=== PATIENT | female | born 1995 | race Caucasian/White ===

== ENCOUNTER 2022-03-12 19:27 | Inpatient (IN) | payer MEDICAID, SELFPAY ==
[2022-03-12] MEDS ORDERED: Misoprostol 200 MCG TAB PR PRN (19:43)
[2022-03-12] MEDS ORDERED: HYDROcodone/Acetaminophen 5/325 mg Tablet PO PRN ×2 (19:43)
[2022-03-12] MEDS ORDERED: Promethazine HCl 25 MG/ML VIAL IM PRN (19:43)
[2022-03-12] MEDS ORDERED: Butorphanol Tartrate 1 MG/ML VIAL SLOW IVP PRN (19:43)
[2022-03-12] MEDS ORDERED: Acetaminophen 500 MG TAB PO PRN (19:43)
[2022-03-12] MEDS ORDERED: Ibuprofen 800 MG TAB PO PRN (19:43)
[2022-03-12] MEDS ORDERED: Carboprost 250 MCG/ML AMP IM PRN (19:43)
[2022-03-12] MEDS ORDERED: Methylergonovine 0.2 MG/ML VIAL IM PRN (19:43)
[2022-03-12] MEDS ORDERED: hydrALAZINE 20 MG/ML VIAL SLOW IVP PRN (19:43)
[2022-03-12] MEDS ORDERED: Lidocaine 1% (PF) 30 ML VIAL SC PRN (19:43)
[2022-03-12] MEDS ORDERED: Ondansetron PF 4 MG/2 ML Vial IVP PRN (19:43)
[2022-03-12] MEDS ORDERED: Diphenoxylate HCl/Atropine Tablet PO PRN ×2 (19:43)
[2022-03-12] MEDS ORDERED: NS w/ Oxytocin 30 units 500 ML IV SCH ×2 (19:45)
[2022-03-12 20:04] VITALS: BMI 40.7
[2022-03-12] MEDS: Lactated Ringer's 1,000 ML IV SCH (20:18)
[2022-03-12 20:48] LABS: Hemoglobin 12.8 g/dL (12.0-15.5); Mean Corpuscular HGB CONC 35.3 g/dL (32.0-36.0); Mean Corpuscular Hemoglobin 30.8 pg (27.0-33.0); Mean Corpuscular Volume 87.3 fl (81.6-98.3); Mean Platelet Volume 10.5 fl (7.4-10.4); Platelet Count 305 10x3/uL (150-450); RBC Distribution Width 11.9 % (11.5-14.5); Red Blood Cell (RBC) Count 4.16 10x6/uL (3.90-5.03); White Blood Cell (WBC) Count 8.1 10x3/uL (3.5-10.5)
[2022-03-12 21:17] LABS: SARS-CoV-2 NAA Rapid Test DETECTED (NotDetected)
[2022-03-12] MEDS: Misoprostol 100 MCG TAB VAG SCH (21:26)
[2022-03-12 21:32] LABS: HBSAg Index 0.21 S/CO (0-0.99); Hep B Surf Ag Non-Reactive S/CO (NonReactive)
[2022-03-12 21:36] LABS: Syphilis Antibody Nonreactive (Nonreactive); Syphilis Antibody Index 0.05 S/CO (<1.00 Non-Reactive)
[2022-03-13] MEDS: Misoprostol 100 MCG TAB VAG SCH ×2 (03:03→07:56)
[2022-03-13] MEDS: Lactated Ringer's 1,000 ML IV SCH (03:35)
[2022-03-14] MEDS: Lactated Ringer's 1,000 ML IV SCH ×4 (03:20→23:32)
[2022-03-14] MEDS ORDERED: Famotidine/PF 20 mg/2ml Vial SLOW IVP PRN (07:41)
[2022-03-14] MEDS ORDERED: Bicitra 30 ML UDCUP PO PRN (07:41)
[2022-03-14] MEDS ORDERED: Famotidine/PF 20 mg/2ml Vial ONE (07:43)
[2022-03-14] MEDS ORDERED: Sodium Chloride 0.9% 100 ML ONE (07:43)
[2022-03-14] MEDS ORDERED: CEFAZOLIN 2 GM VIAL ONE (07:43)
[2022-03-14] MEDS ORDERED: CEFAZOLIN 2 GM in Sodium Chloride 0.9% 100 ML IVPB SCH (07:45)
[2022-03-14] MEDS ORDERED: Azithromycin 500 MG in Sodium Chloride 0.9% 250 ML 250 ML IVPB SCH (07:45)
[2022-03-14] MEDS ORDERED: Misoprostol 200 MCG TAB ONE (09:46)
[2022-03-14] MEDS ORDERED: Carboprost 250 MCG/ML AMP ONE (09:46)
[2022-03-14] MEDS ORDERED: Methylergonovine 0.2 MG/ML VIAL ONE (09:47)
[2022-03-14] MEDS ORDERED: PHENYLEPHRINE-NS 100 MCG/ML 10 ML SYRINGE ONE (10:18)
[2022-03-14] MEDS ORDERED: Oxytocin 10 UNITS/ML VIAL ONE (10:18)
[2022-03-14] MEDS ORDERED: Morphine PF 10 MG/10 ML VIAL ONE (10:20)
[2022-03-14] MEDS ORDERED: Dexamethasone 4 mg/ml Vial ONE (10:59)
[2022-03-14] MEDS ORDERED: Ketorolac Tromethamine 30 MG/ML VIAL ONE (10:59)
[2022-03-14] MEDS ORDERED: Ondansetron PF 4 MG/2 ML Vial ONE (10:59)
[2022-03-14] MEDS ORDERED: Fentanyl 100 MCG/2 ML VIAL SLOW IVP PRN (11:42)
[2022-03-14] MEDS ORDERED: Promethazine HCl 25 MG/ML VIAL IM PRN (11:42)
[2022-03-14] MEDS ORDERED: Naloxone HCl 0.4 mg/ml Vial IVP PRN ×2 (11:42)
[2022-03-14] MEDS ORDERED: diphenhydrAMINE 50 MG/ML VIAL IVP PRN (11:42)
[2022-03-14] MEDS ORDERED: Ondansetron HCl/PF 4 MG/2 ML Vial IVP PRN (11:42)
[2022-03-14] MEDS ORDERED: Meperidine HCl/PF 25 MG/ML VIAL SLOW IVP PRN (11:42)
[2022-03-14] MEDS ORDERED: Moisturizing Cream (Eucerin) 113 GM JAR TOP PRN (11:42)
[2022-03-14] MEDS ORDERED: Promethazine HCl 25 MG SUPP PR PRN (11:42)
[2022-03-14] MEDS ORDERED: Ondansetron PF 4 MG/2 ML Vial IVP PRN (11:42)
[2022-03-14] MEDS ORDERED: Naloxone HCl 0.4 mg/ml Vial IV PRN (11:42)
[2022-03-14] MEDS ORDERED: HYDROmorphone 2 MG/ML VIAL SLOW IVP PRN (11:42)
[2022-03-14] MEDS ORDERED: Ketorolac Tromethamine 30 MG/ML VIAL IVP SCH (11:45)
[2022-03-14] MEDS ORDERED: Communication Order-Pharmacy FS SCH (11:45)
[2022-03-14] MEDS ORDERED: Acetaminophen 325 MG TAB PO PRN (13:48)
[2022-03-14] MEDS ORDERED: Misoprostol 200 MCG TAB PR PRN (13:48)
[2022-03-14] MEDS ORDERED: Boostrix 0.5 ML (Tdap) VIAL (>/=7 yrs of age) IM ONE (13:48)
[2022-03-14] MEDS ORDERED: Lanolin Ointment 7 GM TUBE TOP PRN (13:48)
[2022-03-14] MEDS ORDERED: Simethicone Chewable 80 MG TAB PO PRN (13:48)
[2022-03-14] MEDS ORDERED: hydrALAZINE 20 MG/ML VIAL SLOW IVP PRN (13:48)
[2022-03-14] MEDS ORDERED: Methylergonovine 0.2 MG/ML VIAL IM PRN (13:48)
[2022-03-14] MEDS: Misoprostol 100 MCG TAB VAG SCH ×3 (14:32→14:34)
[2022-03-14] MEDS: Ketorolac Tromethamine 30 MG/ML VIAL IVP PRN (15:56)
[2022-03-14] MEDS: Docusate 100 MG CAP PO SCH (21:57)
[2022-03-14] MEDS: Polyethylene Glycol 3350 17 GM Packet PO SCH (21:58)
[2022-03-14] MEDS ORDERED: HYDROcodone/Acetaminophen 5/325 mg Tablet PO PRN (23:45)
[2022-03-15] MEDS: Ketorolac Tromethamine 30 MG/ML VIAL IVP PRN ×2 (00:55→06:30)
[2022-03-15 04:48] LABS: Hemoglobin 10.6 g/dL (12.0-15.5); Mean Corpuscular Hemoglobin 31.6 pg (27.0-33.0); Mean Corpuscular Volume 90.4 fl (81.6-98.3); Mean Platelet Volume 10.7 fl (7.4-10.4); Platelet Count 289 10x3/uL (150-450); Red Blood Cell (RBC) Count 3.35 10x6/uL (3.90-5.03)
[2022-03-15] MEDS: Misoprostol 100 MCG TAB VAG SCH ×3 (07:26→20:42)
[2022-03-15] MEDS: Lactated Ringer's 1,000 ML IV SCH ×3 (07:26→20:42)
[2022-03-15] MEDS: Prenatal Vitamin 1 TAB PO SCH (08:54)
[2022-03-15] MEDS: Polyethylene Glycol 3350 17 GM Packet PO SCH ×2 (08:54→20:43)
[2022-03-15] MEDS: HYDROcodone/Acetaminophen 5/325 mg Tablet PO PRN ×2 (08:54→13:27)
[2022-03-15] MEDS: Docusate 100 MG CAP PO SCH ×2 (08:55→22:35)
[2022-03-15] MEDS: Ibuprofen 800 MG TAB PO SCH ×2 (13:29→22:35)
[2022-03-16] MEDS: Ibuprofen 800 MG TAB PO SCH (05:29)
[2022-03-16] MEDS: Lactated Ringer's 1,000 ML IV SCH ×2 (05:46→11:58)
[2022-03-16] MEDS: Misoprostol 100 MCG TAB VAG SCH ×4 (05:46→08:47)
[2022-03-16 08:32] VITALS: BP 128/79; TEMP 98.9
[2022-03-16] MEDS: Docusate 100 MG CAP PO SCH (08:54)
[2022-03-16] MEDS: Polyethylene Glycol 3350 17 GM Packet PO SCH (08:54)
[2022-03-16] MEDS: Prenatal Vitamin 1 TAB PO SCH (08:54)
== END 2022-03-16 12:15 | disposition home or self-care (01) | DRG 788 ==
LOC: CSHLD 19:27 → CSHANTE 03-14 13:30 → CSHPED 03-14 14:30
PROVIDERS: ADMIT Obstetrics & Gynecology; ATTEND Obstetrics & Gynecology
PROC: 10D00Z1 Extraction of Products of Conception, Low, Open Approach (ICD-10-PCS; principal; 2022-03-14)
DX: O36.63X0 Maternal care for excessive fetal growth, third trimester, not applicable or unspecified (principal); O32.4XX0 Maternal care for high head at term, not applicable or unspecified; Z3A.40 40 weeks gestation of pregnancy; Z37.0 Single live birth
CPT/HCPCS: 36415; 51702; 85027; 86780; 86850; 86900; 86901; 87340; J0595; J1100; J1885; J2274; J2405; J2590; J7120; S0028; U0002